=== PATIENT | female | born 1990 | race American Indian/Alaskan Native ===

== ENCOUNTER 2017-04-23 08:31 | Emergency (ER) | payer MEDICAID ==
--- NOTE | 2017-04-23 11:22 | Emergency Department Report ---
ED General Adult HPI - General Chief complaint: Upper Respiratory Infection Stated complaint: FLU LIKE SYMPTOMS Time Seen by Provider: 04/23/17 11:21 Source: patient Mode of arrival: Ambulatory Limitations: No Limitations - History of Present Illness Initial comments: Patient is a 27-year-old female no soft Past medical history who presents with cough wound just body aches have been going on for the last couple days. Patient states that she is not been nauseous or vomiting but she had a stuffy nose. She states the body aches are about 4 out of 10. Nothing makes it better or worse. Patient has been trying some Tamiflu at home with no improvement of her symptoms. Patient states that she's been around sick contacts. She does not know how high her fever has been. - Related Data Previous Rx's Medication Instructions Recorded Last Taken Type Ibuprofen [Motrin 800 MG tab] 800 mg PO Q8HR PRN #15 tablet 05/20/15 Unknown Rx traMADol [Ultram 50 MG tab] 50 mg PO Q6HR PRN #10 tablet 05/20/15 Unknown Rx Amoxicillin/K Clav Tab [Augmentin 1 tab PO Q12HR #14 tab 10/08/15 Unknown Rx 875 mg] Ibuprofen [Motrin] 600 mg PO Q8H PRN #30 tablet 10/08/15 Unknown Rx Cpm/PE/Dm/Acetaminophen/Guaifn 1 each PO Q6H #30 tablet.seq 04/23/17 Unknown Rx [Tylenol Cold-Flu Day-Nt Caplet] Oxymetazoline 0.05% [Afrin] 1 spray NS Q6H #1 bottle 04/23/17 Unknown Rx Allergies Allergy/AdvReac Type Severity Reaction Status Date / Time No Known Allergies Allergy Unverified 12/22/14 23:50 ED Review of Systems ROS: Stated complaint: FLU LIKE SYMPTOMS Other details as noted in HPI Constitutional: fever, malaise. denies: chills Eyes: denies: eye pain, eye discharge, vision change ENT: congestion. denies: ear pain, throat pain Respiratory: denies: cough, shortness of breath, wheezing Cardiovascular: denies: chest pain, palpitations Endocrine: no symptoms reported Gastrointestinal: denies: abdominal pain, nausea, diarrhea Genitourinary: denies: urgency, dysuria, discharge Musculoskeletal: denies: back pain, joint swelling, arthralgia Skin: denies: rash, lesions Neurological: denies: headache, weakness, paresthesias Psychiatric: denies: anxiety, depression Hematological/Lymphatic: denies: easy bleeding, easy bruising ED Past Medical Hx - Past Medical History Previous Medical History?: Yes Additional medical history: ovarian cyst - Surgical History Past Surgical History?: Yes Additional Surgical History: Left Ovary removed - Social History Smoking Status: Never Smoker Substance Use Type: None - Medications Home Medications: Home Medications Medication Instructions Recorded Confirmed Last Taken Type Ibuprofen [Motrin 800 MG tab] 800 mg PO Q8HR PRN #15 tablet 05/20/15 Unknown Rx traMADol [Ultram 50 MG tab] 50 mg PO Q6HR PRN #10 tablet 05/20/15 Unknown Rx Amoxicillin/K Clav Tab [Augmentin 1 tab PO Q12HR #14 tab 10/08/15 Unknown Rx 875 mg] Ibuprofen [Motrin] 600 mg PO Q8H PRN #30 tablet 10/08/15 Unknown Rx Cpm/PE/Dm/Acetaminophen/Guaifn 1 each PO Q6H #30 tablet.seq 04/23/17 Unknown Rx [Tylenol Cold-Flu Day-Nt Caplet] Oxymetazoline 0.05% [Afrin] 1 spray NS Q6H #1 bottle 04/23/17 Unknown Rx ED Physical Exam - General Limitations: No Limitations General appearance: alert, in no apparent distress - Head Head exam: Present: atraumatic, normocephalic - Eye Eye exam: Present: normal appearance - ENT ENT exam: Present: mucous membranes moist - Neck Neck exam: Present: normal inspection - Respiratory Respiratory exam: Present: normal lung sounds bilaterally. Absent: respiratory distress - Cardiovascular Cardiovascular Exam: Present: regular rate, normal rhythm. Absent: systolic murmur, diastolic murmur, rubs, gallop - GI/Abdominal GI/Abdominal exam: Present: soft, normal bowel sounds - Extremities Exam Extremities exam: Present: normal inspection - Back Exam Back exam: Present: normal inspection - Neurological Exam Neurological exam: Present: alert, oriented X3 - Psychiatric Psychiatric exam: Present: normal affect, normal mood - Skin Skin exam: Present: warm, dry, intact, normal color. Absent: rash ED Course Vital Signs 04/23/17 08:49 Temperature 99.3 F Pulse Rate 74 Respiratory 18 Rate Blood Pressure 149/89 O2 Sat by Pulse 98 Oximetry ED Medical Decision Making - Medical Decision Making Cdx: Influenza ddx: Jamul virus, postnasal drip, URI I will send patient home with afrin, tylenol and motrin Discussed plan with patient patient agrees with plan additional verbal discharge instructions were given. Critical care attestation.: If time is entered above; I have spent that time in minutes in the direct care of this critically ill patient, excluding procedure time. ED Disposition Clinical Impression: Influenza, Congestion of nasal sinus Disposition: DC-01 TO HOME OR SELFCARE Is pt being admited?: No Does the pt Need Aspirin: No Condition: Stable Prescriptions: Cpm/PE/Dm/Acetaminophen/Guaifn [Tylenol Cold-Flu Day-Nt Caplet] 1 each PO Q6H # 30 tablet.seq Oxymetazoline 0.05% [Afrin] 1 spray NS Q6H #1 bottle Referrals: SHO ANDREWS MD [Staff Physician] - 3-5 Days
[2017-04-23 11:58] VITALS: BP 146/87
== END 2017-04-23 11:56 | disposition home or self-care (01) ==
LOC: ED 08:31
DX: J11.1 Influenza due to unidentified influenza virus with other respiratory manifestations (principal); R09.81 Nasal congestion
CPT/HCPCS: 99282

== ENCOUNTER 2018-10-26 14:38 | Emergency (ER) | payer MEDICAID, OTHER ==
[2018-10-26 15:09] VITALS: BP 153/92
[2018-10-26] MEDS ORDERED: SOLU-Medrol ONE (18:31)
[2018-10-26] MEDS ORDERED: ULTRAM PO ONE (19:45)
--- NOTE | 2018-10-26 20:16 | XRay Report ---
Left foot 3 views INDICATION: Left foot pain and swelling following injury IMPRESSION: No fracture or subluxation of the left foot identified. Signer Name: Arnav Shipman MD Signed: 10/26/2018 8:12 PM Workstation Name: [id number]
--- NOTE | 2018-10-26 20:55 | Emergency Department Report ---
ED Lower Extremity HPI - General Chief Complaint: Extremity Injury, Lower Stated Complaint: LFT FOOT PAIN Time Seen by Provider: 10/26/18 19:42 Source: patient, family Mode of arrival: Ambulatory Limitations: No Limitations - History of Present Illness Initial Comments: pt is a 28 y/o aaf who presents left foot x 1 week pt denies fall injury trauma, pt denies hx of arthralgia, pain is described as 5/10 aching , pain is exacerbated by ambulation ans weight bearing pain is relieved by rest Complaint: foot injury Onset/Timin -: week(s) Injury: Foot: Left Type of Injury: unknown Severity: moderate Severity scale (0 -10): 5 Improves With: rest Worsens With: weight bearing, movement, palpation Associated Symptoms: swelling, able to partially bear weight. denies: numbness, tingling - Related Data Previous Rx's Medication Instructions Recorded Last Taken Type Ibuprofen [Motrin 800 MG tab] 800 mg PO Q8HR PRN #15 tablet 05/20/15 Unknown Rx traMADol [Ultram 50 MG tab] 50 mg PO Q6HR PRN #10 tablet 05/20/15 Unknown Rx Amoxicillin/K Clav Tab [Augmentin 1 tab PO Q12HR #14 tab 10/08/15 Unknown Rx 875 mg] Ibuprofen [Motrin] 600 mg PO Q8H PRN #30 tablet 10/08/15 Unknown Rx Cpm/PE/Dm/Acetaminophen/Guaifn 1 each PO Q6H #30 tablet.seq 04/23/17 Unknown Rx [Tylenol Cold-Flu Day-Nt Caplet] Oxymetazoline 0.05% [Afrin] 1 spray NS Q6H #1 bottle 04/23/17 Unknown Rx Cyclobenzaprine [Flexeril 10mg] 10 mg PO Q12H PRN #14 tablet 02/19/18 Unknown Rx Ibuprofen [Motrin] 600 mg PO Q8H PRN #12 tablet 02/19/18 Unknown Rx Cyclobenzaprine [Flexeril] 10 mg PO TID PRN #30 tablet 10/26/18 Unknown Rx Naproxen [Naprosyn TAB] 500 mg PO BID PRN #30 tablet 10/26/18 Unknown Rx Allergies Allergy/AdvReac Type Severity Reaction Status Date / Time No Known Allergies Allergy Unverified 12/22/14 23:50 ED Review of Systems ROS: Stated complaint: LFT FOOT PAIN Other details as noted in HPI Constitutional: denies: chills, fever Eyes: denies: eye pain, eye discharge, vision change ENT: denies: ear pain, throat pain Respiratory: denies: cough, shortness of breath, wheezing Cardiovascular: denies: chest pain, palpitations Endocrine: no symptoms reported Gastrointestinal: denies: abdominal pain, nausea, diarrhea Genitourinary: denies: urgency, dysuria, discharge Musculoskeletal: other (foot pain ). denies: back pain, joint swelling, arthralgia Skin: denies: rash, lesions Neurological: denies: headache, weakness, paresthesias Psychiatric: as per HPI Hematological/Lymphatic: denies: easy bleeding, easy bruising ED Past Medical Hx - Past Medical History Previous Medical History?: Yes Additional medical history: ovarian cyst - Surgical History Past Surgical History?: Yes Additional Surgical History: Left Ovary removed - Social History Smoking Status: Never Smoker Substance Use Type: Alcohol - Medications Home Medications: Home Medications Medication Instructions Recorded Confirmed Last Taken Type Ibuprofen [Motrin 800 MG tab] 800 mg PO Q8HR PRN #15 tablet 05/20/15 Unknown Rx traMADol [Ultram 50 MG tab] 50 mg PO Q6HR PRN #10 tablet 05/20/15 Unknown Rx Amoxicillin/K Clav Tab [Augmentin 1 tab PO Q12HR #14 tab 10/08/15 Unknown Rx 875 mg] Ibuprofen [Motrin] 600 mg PO Q8H PRN #30 tablet 10/08/15 Unknown Rx Cpm/PE/Dm/Acetaminophen/Guaifn 1 each PO Q6H #30 tablet.seq 04/23/17 Unknown Rx [Tylenol Cold-Flu Day-Nt Caplet] Oxymetazoline 0.05% [Afrin] 1 spray NS Q6H #1 bottle 04/23/17 Unknown Rx Cyclobenzaprine [Flexeril 10mg] 10 mg PO Q12H PRN #14 tablet 02/19/18 Unknown Rx Ibuprofen [Motrin] 600 mg PO Q8H PRN #12 tablet 02/19/18 Unknown Rx Cyclobenzaprine [Flexeril] 10 mg PO TID PRN #30 tablet 10/26/18 Unknown Rx Naproxen [Naprosyn TAB] 500 mg PO BID PRN #30 tablet 10/26/18 Unknown Rx ED Physical Exam - General Limitations: No Limitations General appearance: alert, in no apparent distress - Head Head exam: Present: atraumatic, normocephalic - Eye Eye exam: Present: normal appearance, PERRL, EOMI Pupils: Present: normal accommodation - ENT ENT exam: Present: mucous membranes moist - Neck Neck exam: Present: normal inspection, full ROM. Absent: tenderness, lymphadenopathy, thyromegaly - Respiratory Respiratory exam: Present: normal lung sounds bilaterally. Absent: respiratory distress, wheezes, stridor, chest wall tenderness - Cardiovascular Cardiovascular Exam: Present: regular rate, normal rhythm, normal heart sounds. Absent: systolic murmur, diastolic murmur, rubs, gallop - GI/Abdominal GI/Abdominal exam: Present: soft, normal bowel sounds. Absent: distended, tenderness, guarding, rebound, rigid, bruit, hernia - Rectal Rectal exam: Present: deferred - Extremities Exam Extremities exam: Present: normal inspection, full ROM, tenderness (left foot pain ), normal capillary refill. Absent: pedal edema, joint swelling, calf tenderness - Expanded Lower Extremity Exam Left Foot/Toe exam: Present: full ROM, tenderness. Absent: swelling, abrasion, laceration, ecchymosis, deformity, crepidus, dislocation, erythema, amputation, puncture wound, foreign body, calcaneal tenderness, tenderness at base of 5th metatarsal, nail avulsion, subungual hematoma Neuro vascular tendon exam: Absent: pulse deficit, motor deficit, sensory deficit, tendon deficit, foot drop Gait: Positive: observed and limited by pain - Back Exam Back exam: Present: normal inspection, muscle spasm. Absent: tenderness, CVA tenderness (R), CVA tenderness (L), paraspinal tenderness, vertebral tenderness, rash noted - Neurological Exam Neurological exam: Present: alert, oriented X3, CN II-XII intact, normal gait, reflexes normal. Absent: motor sensory deficit - Psychiatric Psychiatric exam: Present: normal affect, normal mood - Skin Skin exam: Present: warm, dry, intact, normal color. Absent: rash ED Course Vital Signs 10/26/18 10/26/18 15:06 19:54 Temperature 98.2 F Pulse Rate 111 H Respiratory 20 18 Rate Blood Pressure 153/92 O2 Sat by Pulse 99 Oximetry ED Lower Extremity MDM - Radiology Data Radiology results: report reviewed, image reviewed Findings [facility] [address] [place] [address] XRay Report Signed Patient: MARIA FERNANDA ZAZUETA MR#: [id number] : 1990 Acct:[id number] Age/Sex: 28 / F ADM Date: 10/26/18 Loc: ED Attending Dr: Ordering Physician: VALENTINA JORDAN NP Date of Service: 10/26/18 Procedure(s): XR foot 3+V LT Accession Number(s): [id number] cc: VALENTINA JORDAN NP Fluoro Time In Minutes: Left foot 3 views INDICATION: Left foot pain and swelling following injury IMPRESSION: No fracture or subluxation of the left foot identified. Signer Name: Arnav Shipman MD Signed: 10/26/2018 8:12 PM Workstation Name: [id number] Transcribed By: BC Dictated By: Arnav Shipman MD Electronically Authenticated By: Arnav Shipman MD Signed Date/Time: 10/26/182011 DD/ 11 TD/TT: - Medical Decision Making this is a foot strain xray neg for fracture noted small heel spur, prominant sesamoid no fracture distal pulses are +2 bilat, plan, nsaids, rice therapy, follow up with podiatry in 2-3 days. Critical care attestation.: If time is entered above; I have spent that time in minutes in the direct care of this critically ill patient, excluding procedure time. ED Disposition Clinical Impression: Strain of foot, left Qualifiers: Encounter type: initial encounter Qualified Code(s): S96.912A - Strain of unspecified muscle and tendon at ankle and foot level, left foot, initial encounter Disposition: - TO HOME OR SELFCARE Is pt being admited?: No Does the pt Need Aspirin: No Condition: Stable Instructions: Foot Sprain (ED) Prescriptions: Cyclobenzaprine [Flexeril] 10 mg PO TID PRN #30 tablet PRN Reason: Muscle Spasm Naproxen [Naprosyn TAB] 500 mg PO BID PRN #30 tablet PRN Reason: Pain , Severe (7-10) Referrals: ZAHRA GUERRERO DPM [Staff Physician] - 3-5 Days Forms: Work/School Release Form(ED) Time of Disposition: 21:09
== END 2018-10-26 20:45 | disposition home or self-care (01) ==
LOC: ED 14:38
DX: S96.912A Strain of unspecified muscle and tendon at ankle and foot level, left foot, initial encounter (principal); Z79.899 Other long term (current) drug therapy; X58.XXXA Exposure to other specified factors, initial encounter; Y93.89 Activity, other specified; Y92.89 Other specified places as the place of occurrence of the external cause; Y99.8 Other external cause status
CPT/HCPCS: 99283; J2930

== ENCOUNTER 2020-10-22 08:49 | Emergency (ER) | payer MEDICAID ==
[2020-10-22 12:44] VITALS: BP 168/91
--- NOTE | 2020-10-22 12:46 | Event Note ---
ED Screening Note ED Screening Note: +SOB +chest heaviness began 4 days ago occasional cough +fatigue no fever no diarrhea morning sickness with occasional vomiting no chills no body aches no sore throat no ear pain no leg swelling PMHx denies intolerance to codeine gives her nausea/vomiting has received COVID 19 vaccine has not been tested since becoming sick she is currently 9 weeks and seeing ob This initial assessment/diagnostic orders/clinical plan/treatment(s) is/are subject to change based on patients health status, clinical progression and re- assessment by fellow clinical providers in the ED. Further treatment and workup at subsequent clinical providers discretion. Patient/guardian urged not to elope from the ED as their condition may be serious if not clinically assessed and managed. Initial orders include: labs, xr, ekg
[2020-10-22 13:35] LABS: Basophils % (Auto) 0.2 % (0.0-1.8); Eosinophils # (Auto) 0.1 K/mm3 (0.0-0.4); Eosinophils % (Auto) 0.9 % (0.0-4.3); Hematocrit 39.5 % (30.3-42.9); Hemoglobin 13.4 gm/dl (10.1-14.3); Lymphocytes # (Auto) 2.2 K/mm3 (1.2-5.4); Lymphocytes % (Auto) 14.5 % (13.4-35.0); Mean Corpuscular HGB Conc 34 % (30-34); Mean Corpuscular Volume 88 fl (79-97); Monocytes # (Auto) 0.6 K/mm3 (0.0-0.8); Platelet Count 238 K/mm3 (140-440); Red Cell Distribution Width 13.7 % (13.2-15.2)
--- NOTE | 2020-10-22 13:38 | XRay Report ---
CHEST 2 VIEWS INDICATION: SOB. COMPARISON: None FINDINGS: Support devices: None. Heart: Within normal limits. Lungs/pleura: No acute air space or interstitial disease. No pneumothorax. Additional findings: None. IMPRESSION: No acute findings. Signer Name: Emir Ortiz Jr, MD Signed: 10/22/2020 1:33 PM Workstation Name: [id number]
[2020-10-22 14:02] LABS: Alanine Aminotransferase 8 units/L (7-56); Albumin 4.1 g/dL (3.9-5); Blood Urea Nitrogen 4 mg/dL (7-17); Calcium 11.2 mg/dL (8.4-10.2); Hemolysis Index 16
[2020-10-22 14:05] LABS: BUN/Creatinine Ratio 8
--- NOTE | 2020-10-22 16:48 | Emergency Department Report ---
- General Chief Complaint: Upper Respiratory Infection Stated Complaint: DIFFICULTY BREATHING/9WKS PREG PUI?: No Time Seen by Provider: 10/22/20 12:44 Source: patient Mode of arrival: Ambulatory Limitations: No Limitations - History of Present Illness Initial Comments: Patient is a A0 30-year-old -[place] female with no past medical history and who is approximately 9 weeks gestation and presents to the ED with complaint of acute onset persistent dry cough with chest tightness for the last 1 week, worse in the last 2 days. Patient states that the chest tightness is especially worse with deep inhalation which then triggers persistent dry cough, worse mainly in the morning. Patient denies fever, chills, nasal and sinus congestion, chest pain, dizziness, syncope, sore throat, headache, abdominal pain, nausea and vomiting or palpitations, diarrhea, dysuria, urinary frequency and urgency and vaginal bleeding. MD Complaint: cough, other (Shortness of breath and chest tightness) -: Sudden, week(s) (1) Severity: moderate Severity scale (0 -10): 3 Quality: dull Consistency: intermittent Improves With: nothing Worsens With: deep breaths Associated Symptoms: denies other symptoms, cough, chest pain (Chest tightness), shortness of breath. denies: fever, chills, headache, rhinorrhea, nasal congestion, sore throat, abdominal pain, nausea, vomiting, diarrhea, dysuria, rash, confusion, right sweats, weight loss, epistaxis, hoarseness, ear pain Treatments Prior to Arrival: none - Related Data Previous Rx's Medication Instructions Recorded Last Taken Type Ibuprofen [Motrin 800 MG tab] 800 mg PO Q8HR PRN #15 tablet 05/20/15 Unknown Rx traMADoL [Ultram 50 MG tab] 50 mg PO Q6HR PRN #10 tablet 05/20/15 Unknown Rx Amoxicillin/K Clav Tab [Augmentin 1 tab PO Q12HR #14 tab 10/08/15 Unknown Rx 875 mg] Ibuprofen [Motrin] 600 mg PO Q8H PRN #30 tablet 10/08/15 Unknown Rx Cpm/PE/Dm/Acetaminophen/Guaifn 1 each PO Q6H #30 tablet.seq 04/23/17 Unknown Rx [Tylenol Cold-Flu Day-Nt Caplet] Oxymetazoline 0.05% [Afrin] 1 spray NS Q6H #1 bottle 02/10/18 Unknown Rx Cyclobenzaprine [Flexeril 10mg] 10 mg PO Q12H PRN #14 tablet 02/19/18 Unknown Rx Ibuprofen [Motrin] 600 mg PO Q8H PRN #12 tablet 02/19/18 Unknown Rx Cyclobenzaprine [Flexeril] 10 mg PO TID PRN #30 tablet 10/26/18 Unknown Rx Naproxen [Naprosyn TAB] 500 mg PO BID PRN #30 tablet 10/26/18 Unknown Rx Acetaminophen [Tylenol] 500 mg PO Q6HR PRN #30 tablet 10/22/20 Unknown Rx Albuterol Sulfate [Proventil Hfa] 1 - 2 puff IH Q6H PRN #1 hfa.aer.ad 10/22/20 Unknown Rx Cetirizine HCl [Zyrtec 10mg tab] 10 mg PO DAILY #30 tablet 10/22/20 Unknown Rx Promethazine/Dextromethorphan 5 ml PO Q6H PRN #120 ml 10/22/20 Unknown Rx [Promethazine-Dm 6.25-15 mg/5Ml] Allergies Allergy/AdvReac Type Severity Reaction Status Date / Time No Known Allergies Allergy Unverified 12/22/14 23:50 ED Review of Systems ROS: Stated complaint: DIFFICULTY BREATHING/9WKS PREG Other details as noted in HPI Constitutional: denies: chills, fever Eyes: denies: eye pain, eye discharge, vision change ENT: denies: ear pain, throat pain Respiratory: cough, shortness of breath, other (Chest tightness). denies: wheezing Cardiovascular: other (Chest tightness). denies: chest pain, palpitations Endocrine: no symptoms reported Gastrointestinal: denies: abdominal pain, nausea, vomiting, diarrhea Genitourinary: denies: urgency, dysuria, discharge Musculoskeletal: denies: back pain, joint swelling, arthralgia Skin: denies: rash, lesions Neurological: denies: headache, weakness, paresthesias Psychiatric: denies: anxiety, depression Hematological/Lymphatic: denies: easy bleeding, easy bruising ED Past Medical Hx - Past Medical History Previous Medical History?: Yes Additional medical history: ovarian cyst - Surgical History Past Surgical History?: Yes Additional Surgical History: Left Ovary removed - Social History Smoking Status: Never Smoker Substance Use Type: Alcohol - Medications Home Medications: Home Medications Medication Instructions Recorded Confirmed Last Taken Type Ibuprofen [Motrin 800 MG tab] 800 mg PO Q8HR PRN #15 tablet 05/20/15 Unknown Rx traMADoL [Ultram 50 MG tab] 50 mg PO Q6HR PRN #10 tablet 05/20/15 Unknown Rx Amoxicillin/K Clav Tab [Augmentin 1 tab PO Q12HR #14 tab 10/08/15 Unknown Rx 875 mg] Ibuprofen [Motrin] 600 mg PO Q8H PRN #30 tablet 10/08/15 Unknown Rx Cpm/PE/Dm/Acetaminophen/Guaifn 1 each PO Q6H #30 tablet.seq 04/23/17 Unknown Rx [Tylenol Cold-Flu Day-Nt Caplet] Oxymetazoline 0.05% [Afrin] 1 spray NS Q6H #1 bottle 04/23/17 Unknown Rx Cyclobenzaprine [Flexeril 10mg] 10 mg PO Q12H PRN #14 tablet 02/19/18 Unknown Rx Ibuprofen [Motrin] 600 mg PO Q8H PRN #12 tablet 02/19/18 Unknown Rx Cyclobenzaprine [Flexeril] 10 mg PO TID PRN #30 tablet 10/26/18 Unknown Rx Naproxen [Naprosyn TAB] 500 mg PO BID PRN #30 tablet 10/26/18 Unknown Rx Acetaminophen [Tylenol] 500 mg PO Q6HR PRN #30 tablet 10/22/20 Unknown Rx Albuterol Sulfate [Proventil Hfa] 1 - 2 puff IH Q6H PRN #1 hfa.aer.ad 10/22/20 Unknown Rx Cetirizine HCl [Zyrtec 10mg tab] 10 mg PO DAILY #30 tablet 10/22/20 Unknown Rx Promethazine/Dextromethorphan 5 ml PO Q6H PRN #120 ml 10/22/20 Unknown Rx [Promethazine-Dm 6.25-15 mg/5Ml] ED Physical Exam - General Limitations: No Limitations General appearance: alert, in no apparent distress - Head Head exam: Present: atraumatic, normocephalic, normal inspection - Eye Eye exam: Present: normal appearance, PERRL, EOMI Pupils: Present: normal accommodation - ENT ENT exam: Present: normal exam, normal orophraynx, mucous membranes moist, TM's normal bilaterally, normal external ear exam - Neck Neck exam: Present: normal inspection, full ROM - Respiratory Respiratory exam: Present: normal lung sounds bilaterally. Absent: respiratory distress, wheezes, rales, rhonchi, stridor, chest wall tenderness, accessory muscle use, decreased breath sounds, prolonged expiratory - Cardiovascular Cardiovascular Exam: Present: regular rate, normal rhythm, normal heart sounds. Absent: systolic murmur, diastolic murmur, rubs, gallop - GI/Abdominal GI/Abdominal exam: Present: soft, normal bowel sounds. Absent: tenderness, guarding, rebound, hyperactive bowel sounds, hypoactive bowel sounds, organomegaly - Extremities Exam Extremities exam: Present: normal inspection, full ROM, normal capillary refill - Back Exam Back exam: Present: normal inspection, full ROM. Absent: tenderness, CVA tenderness (R), CVA tenderness (L), muscle spasm, paraspinal tenderness, vertebral tenderness - Neurological Exam Neurological exam: Present: alert, oriented X3, CN II-XII intact, normal gait, reflexes normal - Psychiatric Psychiatric exam: Present: normal affect, normal mood - Skin Skin exam: Present: warm, dry, intact, normal color. Absent: rash ED Course Vital Signs 10/22/20 09:45 Temperature 97.6 F Pulse Rate 72 Respiratory 18 Rate Blood Pressure 168/91 O2 Sat by Pulse 100 Oximetry ED Medical Decision Making - Lab Data Result diagrams: 10/22/20 13:00 10/22/20 13:00 - EKG Data EKG shows normal: sinus rhythm Rate: normal - EKG Data Interpretation: normal EKG 10/22/20 16:47 The EKG shows normal sinus rhythm with a ventricular rate of [address] or T wave abnormalities. - Radiology Data Radiology results: report reviewed, image reviewed [facility] [address] [place] [address] XRay Report Signed Patient: MARIA FERNANDA ZAZUETA MR#: [id number] : 1990 Acct:[id number] Age/Sex: 30 / F ADM Date: 10/22/20 Loc: ED Attending Dr: Ordering Physician: DEE NELSON Date of Service: 10/22/20 Procedure(s): XR chest routine 2V Accession Number(s): [id number] cc: DEE DominicMilton Cardenas Time In Minutes: CHEST 2 VIEWS INDICATION: SOB. COMPARISON: None FINDINGS: Support devices: None. Heart: Within normal limits. Lungs/pleura: No acute air space or interstitial disease. No pneumothorax. Additional findings: None. IMPRESSION: No acute findings. Signer Name: Emir Ortiz Jr, MD Signed: 10/22/2020 1:33 PM Workstation Name: [id number] Transcribed By: TTR Dictated By: EMIR ORTIZ JR, MD Electronically Authenticated By: EMIR ORTIZ JR, MD Signed Date/Time: 10/22/201332 DD/ 32 TD/TT: - Medical Decision Making This is a A0 30-year-old -[place] female with no past medical history and who is approximately 9 weeks gestation and presents to the ED with complaint of acute onset persistent dry cough with chest tightness for the last 1 week, worse in the last 2 days. Patient states that the chest tightness is especially worse with deep inhalation which then triggers persistent dry cough, worse mainly in the morning. In the ED, patient is alert and oriented x3 and is not in any distress. All lab test results were reviewed and are all nonactionable. Chest x-ray shows no acute cardiopulmonary abnormalities or pneumonitis. Patient symptoms are likely due to acute bronchitis versus seasonal allergies. Patient was therefore discharged home on medications and a dvised to follow-up with her primary care physician or [facility] physician in 7 to 10 days for reevaluation. Patient is advised to return to the ED immediately if symptoms get worse. - Differential Diagnosis URI; Bronchitis; Pneumonia; ACS; PE Critical care attestation.: If time is entered above; I have spent that time in minutes in the direct care of this critically ill patient, excluding procedure time. ED Disposition Clinical Impression: Feeling of chest tightness Acute bronchitis Qualifiers: Bronchitis organism: other organism Qualified Code(s): J20.8 - Acute bronchitis due to other specified organisms Disposition: DC-01 TO HOME OR SELFCARE Is pt being admited?: No Does the pt Need Aspirin: No Condition: Stable Instructions: Acute Bronchitis (ED), Nonspecific Chest Pain, Adult, Easy-to-Re ad, Acute Bronchitis, Adult, [id number] Additional Instructions: All lab test results were reviewed and are all nonactionable. Chest x-ray shows no acute cardiopulmonary abnormalities or pneumonitis. Therefore take medications with food, drink plenty of fluids and follow-up with your primary care physician in 7 to 10 days for reevaluation. Return to the ED immediately if symptoms get worse. Prescriptions: Acetaminophen [Tylenol] 500 mg PO Q6HR PRN #30 tablet PRN Reason: Pain , Severe (7-10) Promethazine/Dextromethorphan [Promethazine-Dm 6.25-15 mg/5Ml] 5 ml PO Q6H PRN #120 ml PRN Reason: Cough Albuterol Sulfate [Proventil Hfa] 1 - 2 puff IH Q6H PRN #1 hfa.aer.ad PRN Reason: Shortness Of Breath Cetirizine HCl [Zyrtec 10mg tab] 10 mg PO DAILY #30 tablet Referrals: [facility] [Provider Group] - 7-10 days Time of Disposition: 16:48 Print Language: SPANISH
--- NOTE | 2020-10-24 09:13 | Electrocardiograph Report ---
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
== END 2020-10-22 17:32 | disposition home or self-care (01) ==
LOC: ED 08:49
DX: O99.511 Diseases of the respiratory system complicating pregnancy, first trimester (principal); J20.9 Acute bronchitis, unspecified; R07.89 Other chest pain; Z79.899 Other long term (current) drug therapy; Z98.890 Other specified postprocedural states; Z3A.09 9 weeks gestation of pregnancy
CPT/HCPCS: 36415; 71046; 80053; 83880; 84484; 85025; 93005

== ENCOUNTER 2021-04-08 16:16 | Outpatient (CLI) | payer MEDICAID ==
[2021-04-08] MEDS ORDERED: LACTATED RINGERS 1,000 ML IV ONE (16:51)
[2021-04-08] MEDS ORDERED: BUTALB/ACETAMINOPHEN/CAFFEINE TAB PO ONE (17:13)
[2021-04-08 17:49] LABS: Bilirubin,Urine NEG (Negative); Blood,Urine NEG (Negative); Color,Urine Yellow (Yellow); Protein,Urine <15 mg/dL mg/dL (Negative); Urobilinogen,Urine < 2.0 mg/dL (<2.0)
[2021-04-08 17:57] LABS: Hematocrit 33.1 % (30.3-42.9); Mean Corpuscular HGB Conc 33 % (30-34); Mean Corpuscular Volume 85 fl (79-97); Platelet Count 265 K/mm3 (140-440); Red Cell Distribution Width 14.6 % (13.2-15.2)
[2021-04-08 18:01] LABS: Alanine Aminotransferase 12 units/L (7-56); Uric Acid 3.4 mg/dL (3.5-7.6)
[2021-04-08 18:16] VITALS: BP 148/73
== END 2021-04-08 18:49 | disposition home or self-care (01) ==
LOC: TRG 16:16 → APU 16:18 → TRG 18:49
PROVIDERS: ATTEND Obstetrics & Gynecology
DX: O13.3 Gestational [pregnancy-induced] hypertension without significant proteinuria, third trimester (principal); Z3A.33 33 weeks gestation of pregnancy
CPT/HCPCS: 36415; 59025; 81001; 82565; 83615; 84450; 84460; 84550; 85027; 87086

== ENCOUNTER 2021-05-05 20:20 | Inpatient (IN) | payer MEDICAID ==
[2021-05-05] MEDS ORDERED: TERBUTALINE 1 MG/1 ML INJ SUB-Q PRN (21:38)
[2021-05-05] MEDS ORDERED: miSOPROStol 200 MCG TAB PR PRN (21:38)
[2021-05-05] MEDS ORDERED: CARBOPROST TROMETHAMINE 250 MCG/1 ML INJ IM PRN (21:38)
[2021-05-05] MEDS ORDERED: OXYTOCIN 10 UNIT/1 ML INJ IM PRN (21:38)
[2021-05-05] MEDS ORDERED: LIDOCAINE (2%) 20 MG/1 ML VIAL 20 ML MDV INFILTRATI ONE (21:38)
[2021-05-05] MEDS ORDERED: LOPERAMIDE 2 MG CAP PO PRN (21:38)
[2021-05-05] MEDS ORDERED: METHYLERGONOVINE MALEATE 0.2 MG/ML VIAL IM PRN (21:38)
[2021-05-05] MEDS ORDERED: ePHEDrine SULFATE 50 MG/1 ML INJ IV PRN (21:38)
[2021-05-05] MEDS ORDERED: MINERAL OIL 30 ML ORAL LIQD PO PRN (21:38)
[2021-05-05] MEDS ORDERED: LACTATED RINGERS 1,000 ML IV SCH (21:45)
[2021-05-05] MEDS ORDERED: fentaNYL 100 MCG/2 ML INJ IV PRN (21:57)
[2021-05-05] MEDS ORDERED: BUTORPHANOL 2 MG/1 ML INJ IV PRN (21:57)
[2021-05-05] MEDS ORDERED: NalbUPHINE 10 MG/1 ML INJ IV PRN (21:57)
[2021-05-05] MEDS ORDERED: ACETAMINOPHEN 325 MG TAB PO PRN (21:57)
[2021-05-05] MEDS ORDERED: OXYTOCIN DRIP 30 UNITS/500 ML BAG IV SCH ×2 (22:00)
[2021-05-05 23:02] LABS: Hematocrit 29.4 % (30.3-42.9); Hemoglobin 10.1 gm/dl (10.1-14.3); Mean Corpuscular HGB Conc 34 % (30-34); Mean Corpuscular Volume 84 fl (79-97); Platelet Count 241 K/mm3 (140-440); Red Blood Count 3.51 M/mm3 (3.65-5.03); Red Cell Distribution Width 13.9 % (13.2-15.2)
--- NOTE | 2021-05-06 02:45 | History and Physical Report ---
History of Present Illness Date of examination: 05/06/21 Date of admission: 05/05/21 21:38 Chief complaint: Induction of labor History of present illness: 31-year-old -0-0-1 at 37+1 weeks presents for induction of labor secondary to chronic hypertension and polyhydramnios. The patient initiated care in the [facility] medicine of the . Her course has been complicated by chronic hypertension, polyhydramnios, morbid obesity, and uterine fibroids. 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 Social history: single - Obstetrical History Expected Date of Delivery: 05/26/21 Actual Gestation: 37 Week(s) 1 Day(s) : 2 Para: 1 Hx # Term Pregnancies: 1 Number of Pregnancies: 0 Spontaneous Abortions: 0 Induced : 0 Number of Living Children: 1 Medications and Allergies Allergies Allergy/AdvReac Type Severity Reaction Status Date / Time No Known Allergies Allergy Verified 04/08/21 16:49 Home Medications Medication Instructions Recorded Confirmed Last Taken Type Ibuprofen [Motrin 800 MG tab] 800 mg PO Q8HR PRN #15 tablet 05/20/15 Unknown Rx traMADoL [Ultram 50 MG tab] 50 mg PO Q6HR PRN #10 tablet 05/20/15 Unknown Rx Amoxicillin/K Clav Tab [Augmentin 1 tab PO Q12HR #14 tab 10/08/15 Unknown Rx 875 mg] Ibuprofen [Motrin] 600 mg PO Q8H PRN #30 tablet 10/08/15 Unknown Rx Cpm/PE/Dm/Acetaminophen/Guaifn 1 each PO Q6H #30 tablet.seq 04/23/17 Unknown Rx [Tylenol Cold-Flu Day-Nt Caplet] Oxymetazoline 0.05% [Afrin] 1 spray NS Q6H #1 bottle 04/23/17 Unknown Rx Cyclobenzaprine [Flexeril 10mg] 10 mg PO Q12H PRN #14 tablet 02/19/18 Unknown Rx Ibuprofen [Motrin] 600 mg PO Q8H PRN #12 tablet 02/19/18 Unknown Rx Cyclobenzaprine [Flexeril] 10 mg PO TID PRN #30 tablet 10/26/18 Unknown Rx Naproxen [Naprosyn TAB] 500 mg PO BID PRN #30 tablet 10/26/18 Unknown Rx Acetaminophen [Tylenol] 500 mg PO Q6HR PRN #30 tablet 10/22/20 Unknown Rx Albuterol Sulfate [Proventil Hfa] 1 - 2 puff IH Q6H PRN #1 hfa.aer.ad 10/22/20 Unknown Rx Cetirizine HCl [Zyrtec 10mg tab] 10 mg PO DAILY #30 tablet 10/22/20 Unknown Rx Promethazine/Dextromethorphan 5 ml PO Q6H PRN #120 ml 10/22/20 Unknown Rx [Promethazine-Dm 6.25-15 mg/5Ml] Active Meds: Active Medications Acetaminophen (Acetaminophen 325 Mg Tab) 650 mg PO Q4H PRN PRN Reason: Pain, Mild (1-3) Butorphanol Tartrate (Butorphanol 2 Mg/1 Ml Inj) 2 mg IV Q2H PRN PRN Reason: Pain , Severe (7-10) Carboprost Tromethamine (Carboprost Tromethamine 250 Mcg/1 Ml Inj) 250 mcg IM ONCE PRN PRN Reason: Uterine Bleeding Ephedrine Sulfate (Ephedrine Sulfate 50 Mg/1 Ml Inj) 10 mg IV Q2M PRN PRN Reason: Hypotension Fentanyl (Fentanyl 100 Mcg/2 Ml Inj) 100 mcg IV Q2H PRN PRN Reason: Pain,Severe (7-10) LABOR PAIN Oxytocin/Sodium Chloride (Pitocin/Ns 30 Unit/500ml) 30 units in 500 mls @ 2 mls/hr IV TITR KENYA; Protocol Last Titration: 05/06/21 01:48 Dose: 4 mls/hr, 4 mls/hr Lactated Ringer's (Lactated Ringers) 1,000 mls @ 125 mls/hr IV DIRECT KENYA Last Admin: 05/05/21 23:29 Dose: 125 mls/hr Oxytocin/Sodium Chloride (Pitocin/Ns 30 Unit/500ml) 30 units in 500 mls @ 40 mls/hr IV TITR KENYA; Protocol Loperamide HCl (Loperamide 2 Mg Cap) 2 mg PO ONCE PRN PRN Reason: give with Hemabate Methylergonovine Maleate (Methylergonovine Maleate 0.2 Mg/Ml Vial) 0.2 mg IM ONCE PRN PRN Reason: Uterine Bleeding Mineral Oil (Mineral Oil 30 Ml Oral Liqd) 30 ml PO QHS PRN PRN Reason: Constipation Misoprostol (Misoprostol 200 Mcg Tab) 800 mcg SC ONCE PRN PRN Reason: Uterine Bleeding Nalbuphine HCl (Nalbuphine 10 Mg/1 Ml Inj) 10 mg IV Q2H PRN PRN Reason: Pain, Moderate (4-6) Oxytocin (Oxytocin 10 Unit/1 Ml Inj) 10 unit IM ONCE PRN PRN Reason: Uterine Bleeding Terbutaline Sulfate (Terbutaline 1 Mg/1 Ml Inj) 0.25 mg SUB-Q ONCE PRN PRN Reason: Hyperstimulation/Hypertonicity Review of Systems All systems: negative Genitourinary: no leakage of fluid, no contractions - Vital Signs Vital signs: Vital Signs Pulse Pulse Ox 78 100 05/05/21 23:19 05/05/21 23:19 Temp Pulse Resp BP Pulse Ox 98.7 F 78 132/82 99 05/06/21 00:39 05/06/21 02:38 05/06/21 00:49 05/06/21 02:38 - Physical Exam Breasts: Positive: deferred Cardiovascular: Regular rate Lungs: Positive: Clear to auscultation Abdomen: Positive: normal appearance Results Result Diagrams: 05/05/21 21:40 Abnormal lab results 05/05/21 Range/Units 21:40 WBC 12.2 H (4.5-11.0) K/mm3 RBC 3.51 L (3.65-5.03) M/mm3 Hct 29.4 L (30.3-42.9) % All other labs normal. Assessment and Plan - Patient Problems (1) Chronic hypertension affecting Current Visit: Yes Status: Acute Plan to address problem: Admit for induction of labor (2) Polyhydramnios affecting Current Visit: Yes Status: Acute
--- NOTE | 2021-05-06 07:56 | Progress Note ---
Assessment and Plan - Patient Problems (1) Chronic hypertension affecting Current Visit: Yes Status: Acute Plan to address problem: AROM @ 0750, clear fluids Epidural as desired Continue to monitor B/Ps closely Anticipate (2) Morbid obesity with BMI of 50.0-59.9, adult Current Visit: Yes Status: Acute Subjective - Subjective Date of service: 05/06/21 Principal diagnosis: IOL; CHTN Interval history: 31-year-old -0-0-1 at 37+1 weeks presents for induction of labor secondary to chronic hypertension and polyhydramnios. The patient initiated care in the pressure medicine of the . Her course has been complicated by chronic hypertension, polyhydramnios, morbid obesity, and uterine fibroids. Patient is GBS negative Patient reports: movement normal, contractions, no new complaints, no loss of fluid, no vaginal bleeding Objective - Vital Signs Vital Signs: Vital Signs - 12hr 05/05/21 05/05/21 05/05/21 23:19 23:24 23:29 Temperature Pulse Rate 78 87 92 H Blood Pressure O2 Sat by Pulse 100 100 100 Oximetry 05/05/21 05/05/21 05/06/21 23:34 23:39 00:39 Temperature 98.7 F Pulse Rate 91 H 98 H Blood Pressure O2 Sat by Pulse 97 99 Oximetry 05/06/21 05/06/21 05/06/21 00:49 00:54 00:59 Temperature Pulse Rate 82 87 87 Blood Pressure 132/82 O2 Sat by Pulse 99 98 100 Oximetry 05/06/21 05/06/21 05/06/21 01:04 01:09 01:14 Temperature Pulse Rate 81 86 83 Blood Pressure O2 Sat by Pulse 99 100 100 Oximetry 05/06/21 05/06/21 05/06/21 01:19 01:24 01:29 Temperature Pulse Rate 87 86 83 Blood Pressure O2 Sat by Pulse 100 100 100 Oximetry 05/06/21 05/06/21 05/06/21 01:32 01:34 01:43 Temperature Pulse Rate 94 H 85 82 Blood Pressure O2 Sat by Pulse 88 100 100 Oximetry 05/06/21 05/06/21 05/06/21 01:48 01:53 01:58 Temperature Pulse Rate 79 77 87 Blood Pressure O2 Sat by Pulse 100 100 100 Oximetry 02/23/22 02/23/22 02/23/22 02:03 02:08 02:13 Temperature Pulse Rate 76 84 75 Blood Pressure O2 Sat by Pulse 100 100 100 Oximetry 05/06/21 05/06/21 05/06/21 02:18 02:23 02:28 Temperature Pulse Rate 81 79 79 Blood Pressure O2 Sat by Pulse 100 100 100 Oximetry 05/06/21 05/06/21 05/06/21 02:33 02:38 02:43 Temperature Pulse Rate 80 78 79 Blood Pressure O2 Sat by Pulse 99 99 98 Oximetry 05/06/21 05/06/21 05/06/21 02:48 02:52 02:53 Temperature Pulse Rate 73 96 H 88 Blood Pressure O2 Sat by Pulse 100 92 100 Oximetry 05/06/21 05/06/21 05/06/21 02:58 03:03 03:08 Temperature Pulse Rate 84 91 H 81 Blood Pressure O2 Sat by Pulse 100 100 100 Oximetry 05/06/21 05/06/21 05/06/21 04:18 04:24 04:25 Temperature Pulse Rate 80 72 83 Blood Pressure O2 Sat by Pulse 81 L 0 L 100 Oximetry 05/06/21 05/06/21 05/06/21 04:30 04:35 04:40 Temperature Pulse Rate 95 H 82 90 Blood Pressure O2 Sat by Pulse 100 100 100 Oximetry 05/06/21 05/06/21 05/06/21 04:45 04:50 04:55 Temperature Pulse Rate 76 79 77 Blood Pressure O2 Sat by Pulse 100 100 100 Oximetry 05/06/21 05/06/21 05/06/21 05:00 05:05 05:10 Temperature Pulse Rate 100 H 77 87 Blood Pressure O2 Sat by Pulse 100 100 99 Oximetry 05/06/21 05/06/21 05/06/21 05:15 05:20 05:25 Temperature Pulse Rate 79 77 83 Blood Pressure O2 Sat by Pulse 100 100 100 Oximetry 05/06/21 05/06/21 05/06/21 05:30 05:35 05:40 Temperature Pulse Rate 79 81 81 Blood Pressure O2 Sat by Pulse 100 100 100 Oximetry 05/06/21 05/06/21 05/06/21 05:45 05:50 05:55 Temperature Pulse Rate 79 77 83 Blood Pressure O2 Sat by Pulse 99 100 100 Oximetry 05/06/21 05/06/21 05/06/21 06:01 06:06 06:31 Temperature Pulse Rate 92 H 87 79 Blood Pressure 132/79 O2 Sat by Pulse 92 100 Oximetry 05/06/21 07:26 Temperature Pulse Rate 85 Blood Pressure 137/90 O2 Sat by Pulse Oximetry - Exam Breasts: deferred Cardiovascular: Regular rate Lungs: Normal air movement FHR: category 1 Uterine Contraction Monitor Mode: External Cervical Dilatation: 4.5 (vertex) Cervical Effacement Percentage: 90 (Pitocin @ 10mu/min) station: -1 Uterine Contraction Frequency (min): 3-5 Uterine Contraction Pattern: Irregular Uterine Tone Measurement Phase: Resting Uterine Contraction Intensity: Mild Deep Tendon Reflex Grade: Normal +2 - Labs Labs: Abnormal Labs 05/05/21 21:40 WBC 12.2 H RBC 3.51 L Hct 29.4 L Laboratory Results - last 24 hr 05/05/21 05/05/21 05/05/21 21:40 21:40 21:40 WBC 12.2 H RBC 3.51 L Hgb 10.1 Hct 29.4 L MCV 84 MCH 29 MCHC 34 RDW 13.9 Plt Count 241 Syphilis IgG/IgM Ab Nonreactive Blood Type B POSITIVE Antibody Screen Negative
--- NOTE | 2021-05-06 08:43 | Anesthesia Consultation ---
Anesthesia Consult and Med Hx Date of service: 05/06/21 - Airway Anesthetic Teeth Evaluation: Good ROM Head & Neck: Adequate Mental/Hyoid Distance: Adequate Mallampati Class: Class III Intubation Access Assessment: Possibly Difficult - Pre-Operative Health Status ASA Pre-Surgery Classification: ASA3 Proposed Anesthetic Plan: Epidural, Spinal - Pulmonary Hx Asthma: No COPD: No Hx Pneumonia: No - Cardiovascular System Hx Hypertension: No - Central Nervous System Hx Seizures: No Hx Psychiatric Problems: No - Endocrine Hx Renal Disease: No Hx End Stage Renal Disease: No Hx Hypothyroidism: No Hx Hyperthyroidism: No - Hematic Hx Anemia: Yes Hx Sickle Cell Disease: No - Other Systems Hx Alcohol Use: No Hx Obesity: Yes (BMI 55.3)
--- NOTE | 2021-05-06 08:49 | Progress Note ---
Labor Epidural - Labor Epidural Start Time: 08:24 Stop Time: 08:34 Performed by:: DERICK MCPHERSON Procedure: Combined spinal/epidural for labor Patient requesting epidural for labor pain. H&P, labs were reviewed. Patient IDed, procedure explained, all questions and concerns answered, and consent signed. Timeout performed immediately prior to procedure. Patient placed in sitting position. Sterile prep and drape in usual fashion. Skin anesthetized with 3ml of 1% lidocaine at L[2]- L [3] interspace. 17-gauge Touhy epidural needle advanced to LIZ with saline @ 6cm. Negative CSF, negative blood via Touhy needle. 25g spinal needle advanced through Touhy until clear, free flowing CSF noted. 10 mg of Precedex injected into intrathecal space then spinal needle removed. Epidural catheter advanced to [11] centimeters. [Negative] aspiration and [negative] response to 1% lidocaine w/ epi test dose. Clear, sterile dressing applied and reinforced with tape. Patient tolerated procedure well, no immediate complications noted. Pain improved after procedure
[2021-05-06] MEDS ORDERED: fentaNYL-BUPIV 2 MCG/ML-0.125% 200 MCG/100 ML BAG EPIDURAL SCH (09:00)
[2021-05-06] MEDS ORDERED: NALOXONE 2 MG/2 ML INJ IV PRN (09:00)
[2021-05-06] MEDS ORDERED: ePHEDrine SULFATE 50 MG/1 ML INJ IV PRN (10:00)
--- NOTE | 2021-05-06 10:31 | Procedure Note ---
OB Delivery Note - Delivery Date of Delivery: 05/06/21 (1000) Surgeon: RANDALL ZAZUETA (CNM) Estimated blood loss: 300cc - Vaginal Delivery presentation: vertex Delivery position: OA (VONNIE) Intrapartum events: none Delivery induction: oxytocin Delivery augmentation: rupture of membranes (AROM @ 0750) Delivery monitor: external FHT, external uterine Route of delivery: Delivery placenta: spontaneous (1005) Delivery cord: 3 umbilical vessels Episiotomy: none Delivery laceration: none Anesthesia: epidural Delivery comments: of viable, crying, female placed directly to maternal abdomen. Cord double clamped, cut by MGM after cessation of pulsation. Placenta spontaneously delivered, disposed per hospital policy. Uterus firm @ U-2, hemostasis maintained. Perineum intact. Mother and baby stable, safe and left in care of MD. - A at 1 minute: 9 at 5 minutes: 9 Infant Gender: Female (Weight: 2990 gms (6lbs 9ozs) 19.25 inches)
[2021-05-06] MEDS ORDERED: diphenhydrAMINE 25 MG CAP PO PRN (11:00)
[2021-05-06] MEDS ORDERED: oxyCODONE /ACETAMINOPHEN 5-325MG TAB PO PRN (11:00)
[2021-05-06] MEDS ORDERED: WITCH HAZEL/ GLYCERIN PAD TP PRN (11:00)
[2021-05-06] MEDS ORDERED: MAGNESIUM HYDROXIDE (MOM) ORAL LIQD UDC PO PRN (11:00)
[2021-05-06] MEDS ORDERED: LANOLIN/ZINC/DIMETHICONE (LANSINOH) 7 GM TP PRN (11:00)
[2021-05-06] MEDS ORDERED: PROMETHAZINE 25 MG TAB PO PRN (11:00)
[2021-05-06] MEDS ORDERED: ONDANSETRON 4 MG/2 ML INJ IV PRN (11:00)
[2021-05-06] MEDS: IBUPROFEN 800 MG TAB PO SCH (16:52)
--- NOTE | 2021-05-06 18:32 | Post Anesthesia Evaluation ---
- Post Anesthesia Evaluation Patient Participated: Yes Airway Patent: Yes Stable Respiratory Function: Yes Nausea/Vomiting: No Temp > 96.8F: Yes Pain Manageable: Yes Adequeate Hydration: Yes Anesthesia Complications: No Block Receding Appropriately: Yes Patient on Ventilator: No
[2021-05-06 23:45] LABS: Hematocrit 28.4 % (30.3-42.9); Hemoglobin 9.6 gm/dl (10.1-14.3)
[2021-05-07] MEDS: IBUPROFEN 800 MG TAB PO SCH ×2 (07:14→10:22)
--- NOTE | 2021-05-07 08:30 | Discharge Summary ---
Providers - Providers Date of Admission: 05/05/21 21:38 Date of discharge: 05/07/21 Attending physician: RISA CASTILLO 05/06/21 10:25 Consult to Transportation Job Titles [CONS] Routine Reason For Exam: assistance with , SNS Primary care physician: RISA CASTILLO Hospitalization Reason for admission: induction of labor Delivery: Episiotomy: none Laceration: none Other procedures: none complications: none Discharge diagnosis: IUP at term delivered, other (anemia) [place] baby: female Hospital course: 31-year-old -0-0-1 at 37+1 weeks presents for induction of labor secondary to chronic hypertension and polyhydramnios. The patient initiated care in the pressure medicine of the . Her course has been complicated by chronic hypertension, polyhydramnios, morbid obesity, and uterine fibroids. Patient is GBS negative. Delivered viable female infant. course has been uneventful, request d/c home on PPD#1. F/U in 1 week at office for B/P check. Condition at discharge: Good Disposition: 01 HOME / SELF CARE / HOMELESS - Discharge Diagnoses (1) Chronic hypertension affecting Status: Acute (2) Morbid obesity with BMI of 50.0-59.9, adult Status: Acute (3) Status post normal vaginal delivery Status: Acute Plan - Discharge Medications Prescriptions: Ibuprofen [Motrin 800 MG tab] 800 mg PO Q8HR 7 Days #21 tablet - Provider Discharge Summary Activity: routine, no sex for 6 weeks, no heavy lifting 4 weeks, no strenuous exercise Diet: other (Iron rich diet) Instructions: routine Additional instructions: [] Smoking cessation referral if applicable(refer to patient education folder for contact #) [] Refer to [facility] Booklet Call your doctor immediately for: * Fever > 100.5 * Heavy vaginal bleeding ( >1 pad per hour) * Severe persistent headache * Shortness of breath * Reddened, hot, painful area to leg or breast * Drainage or odor from incision. * Follow-up in 1 week for B/P check - Follow up plan Follow up: RISA CASTILLO MD [Primary Care Provider] - 7 Days
[2021-05-07] MEDS ORDERED: PRENATAL VIT27-FE FUMARATE-FOLIC ACID VIT TAB PO SCH (10:00)
[2021-05-07 18:15] VITALS: BP 147/88
== END 2021-05-07 19:22 | disposition home or self-care (01) | DRG 774 ==
LOC: CATH 20:20 → TRG 20:20 → LD 21:38 → OB 05-06 12:29
PROVIDERS: ADMIT Obstetrics & Gynecology; ATTEND Obstetrics & Gynecology
PROC: 10E0XZZ Delivery of Products of Conception, External Approach (ICD-10-PCS; principal; 2021-05-06)
PROC: 10907ZC Drainage of Amniotic Fluid, Therapeutic from Products of Conception, Via Natural or Artificial Opening (ICD-10-PCS; 2021-05-06)
PROC: 3E0R3BZ Introduction of Anesthetic Agent into Spinal Canal, Percutaneous Approach (ICD-10-PCS; 2021-05-06)
PROC: 00HU33Z Insertion of Infusion Device into Spinal Canal, Percutaneous Approach (ICD-10-PCS; 2021-05-06)
PROC: 3E033VJ Introduction of Other Hormone into Peripheral Vein, Percutaneous Approach (ICD-10-PCS; 2021-05-06)
DX: O40.3XX0 Polyhydramnios, third trimester, not applicable or unspecified (principal); O10.92 Unspecified pre-existing hypertension complicating childbirth; O99.214 Obesity complicating childbirth; Z3A.37 37 weeks gestation of pregnancy; Z37.0 Single live birth; E66.01 Morbid (severe) obesity due to excess calories; Z20.822 Contact with and (suspected) exposure to COVID-19; O34.13 Maternal care for benign tumor of corpus uteri, third trimester; D25.9 Leiomyoma of uterus, unspecified
CPT/HCPCS: 36415; 85014; 85018; 85027; 86592; 86850; 86900; 86901; 99211; G0378; G0463; J2590; J7120; U0003

== ENCOUNTER 2021-05-10 18:09 | Inpatient (IN) | payer MEDICAID ==
[2021-05-10] MEDS ORDERED: MAGNESIUM SULFATE 4 GM/100 ML BAG IV ONE (18:15)
[2021-05-10] MEDS: LACTATED RINGERS 1,000 ML IV SCH (18:27)
[2021-05-10 18:57] LABS: Hematocrit 33.2 % (30.3-42.9); Hemoglobin 11.3 gm/dl (10.1-14.3); Mean Corpuscular HGB Conc 34 % (30-34); Mean Corpuscular Volume 85 fl (79-97); Platelet Count 317 K/mm3 (140-440); Red Blood Count 3.93 M/mm3 (3.65-5.03); Red Cell Distribution Width 13.8 % (13.2-15.2)
[2021-05-10] MEDS: MAGNESIUM SULFATE 40GM/1000ML 40 GM/1,000 ML BAG IV SCH (19:05)
[2021-05-10 19:15] LABS: Alanine Aminotransferase 22 units/L (7-56); Uric Acid 4.9 mg/dL (3.5-7.6)
[2021-05-10 19:25] LABS: Bacteria,Urine 1+ /HPF (Negative); Bilirubin,Urine NEG (Negative); Blood,Urine LG (Negative); Color,Urine Yellow (Yellow); Protein,Urine <15 mg/dL mg/dL (Negative); Urobilinogen,Urine < 2.0 mg/dL (<2.0)
[2021-05-10] MEDS ORDERED: hydrALAZINE 20 MG/1 ML INJ IV ONE (20:05)
[2021-05-10] MEDS ORDERED: hydrALAZINE 20 MG/1 ML INJ IV PRN (20:06)
[2021-05-10] MEDS ORDERED: ACETAMINOPHEN 325 MG TAB PO ONE (20:59)
[2021-05-11] MEDS ORDERED: NIFEdipine XL 30 MG TAB PO SCH ×2 (02:00→10:00)
[2021-05-11] MEDS: ACETAMINOPHEN 500 MG TAB PO PRN ×2 (02:11→07:30)
[2021-05-11] MEDS: BUTALB/ACETAMINOPHEN/CAFFEINE TAB PO PRN ×2 (09:00→17:54)
--- NOTE | 2021-05-11 09:02 | History and Physical Report ---
History of Present Illness Date of examination: 05/11/21 Date of admission: 05/10/21 20:26 Chief complaint: headahce, elevated blood pressure History of present illness: Patient is a 31-year-old -0-0-2 status post on May 06, 2021 at 37 weeks after scheduled induction due to chronic hypertension and polyhydramnios. She was admitted overnight secondary to headache and elevated blood pressures 180s to 190s systolic. She was placed on IV magnesium sulfate for seizure prophylaxis which began around 1900 p.m. on 05/10/2021. This morning the patient continues to complain of headache, but reports that she has not eaten since noon yesterday. She has sad because she is away from her baby. 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 ) [employer] History: fibroids Social history: single - Obstetrical History : 2 Para: 2 Hx # Term Pregnancies: 2 Number of Pregnancies: 0 Spontaneous Abortions: 0 Induced : 0 Number of Living Children: 2 Medications and Allergies Allergies Allergy/AdvReac Type Severity Reaction Status Date / Time No Known Allergies Allergy Verified 05/10/21 18:12 Home Medications Medication Instructions Recorded Confirmed Last Taken Type labetaloL [Labetalol 200mg TAB] 200 mg PO BID 05/10/21 05/10/21 05/09/21 18:00 History Active Meds: Active Medications Acetaminophen (Acetaminophen 500 Mg Tab) 500 mg PO Q6H PRN PRN Reason: Pain, Mild (1-3) Last Admin: 05/11/21 07:30 Dose: 500 mg Acetaminophen/Butalbital/Caffeine (Butalb/Acetaminophen/Caffeine Tab) 2 tab PO Q4H PRN PRN Reason: Headache Hydralazine HCl (Hydralazine 20 Mg/1 Ml Inj) 5 mg IV Q30MIN PRN PRN Reason: Blood Pressure Lactated Ringer's (Lactated Ringers) 1,000 mls @ 125 mls/hr IV DIRECT KENYA Last Infusion: 05/10/21 18:28 Dose: 75 mls/hr Magnesium Sulfate (Magnesium Sulfate 40gm/1000ml) 40 gm in 1,000 mls @ 50 mls/hr IV DIRECT KENYA Last Admin: 05/10/21 19:05 Dose: 2 gm/hr, 50 mls/hr Labetalol HCl (Labetalol 100 Mg Tab) 300 mg PO BID KENYA Nifedipine (Nifedipine Xl 30 Mg Tab) 30 mg PO QDAY KENYA Last Admin: 05/11/21 01:59 Dose: 30 mg Review of Systems All systems: negative - Vital Signs Vital signs: Vital Signs Pulse Pulse Ox 87 100 05/10/21 18:16 05/10/21 18:16 Temp Pulse Resp BP Pulse Ox 98.1 F 82 15 153/88 100 05/11/21 07:08 05/11/21 08:57 05/11/21 07:08 05/11/21 08:30 05/11/21 08:57 - Physical Exam Breasts: Positive: deferred Abdomen: Positive: soft (obese ) Extremities: Positive: edema (trace ) Results Result Diagrams: 05/10/21 18:40 05/10/21 18:40 Abnormal lab results 05/10/21 05/10/21 05/10/21 Range/Units 18:40 18:40 18:40 WBC 12.6 H (4.5-11.0) K/mm3 Magnesium (1.7-2.3) mg/dL Lactate Dehydrogenase 221 H (91-180) units/L Urine WBC (Auto) 35.0 H (0.0-6.0) /HPF 05/11/21 05/11/21 Range/Units 01:30 07:53 WBC (4.5-11.0) K/mm3 Magnesium 4.10 H 3.90 H (1.7-2.3) mg/dL Lactate Dehydrogenase (91-180) units/L Urine WBC (Auto) (0.0-6.0) /HPF All other labs normal. Assessment and Plan A: Chronic Hypertension with superimposed preeclampsia s/p on 05/06/21 Morbid Obesity P: Continue IV magnesium sulfate for seizure prophylaxis for 24 hours Continue labetalol 300 mg BID and Procardia XL 30 mg; increased as needed Initiate Fioricet PRN headache
[2021-05-11] MEDS: MAGNESIUM SULFATE 40GM/1000ML 40 GM/1,000 ML BAG IV SCH (15:49)
[2021-05-11] MEDS: LACTATED RINGERS 1,000 ML IV SCH (15:49)
[2021-05-11] MEDS ORDERED: NIFEdipine XL 30 MG TAB PO ONE (17:30)
--- NOTE | 2021-05-12 09:04 | Progress Note ---
Assessment and Plan A: pre-eclampsia s/p Mag sulfate x 24hrs Vitals stable P: Continue with routine care with discharge this morning Subjective - Subjective Date of service: 05/12/21 Principal diagnosis: Pre-eclampsia Interval history: Patient is s/p Mag Sulfate x 24hrs for pre-eclampsia. She reports she is feeling much better and is excited to go home. Patient reports: appetite normal, voiding normally, pain well controlled Objective - Vital Signs Latest vital signs: Vital Signs Temp Pulse Resp BP BP Pulse Ox Pulse Ox 05/12/21 07:30 98 05/12/21 06:49 89 147/89 05/12/21 04:00 98.6 F 77 16 134/78 05/12/21 01:58 125/66 05/12/21 01:55 98.0 F 88 18 149/92 97 05/12/21 00:44 87 100 05/12/21 00:39 88 98 05/12/21 00:34 93 H 98 05/12/21 00:32 88 155/80 05/12/21 00:29 89 98 05/12/21 00:24 88 99 05/12/21 00:19 85 100 05/12/21 00:17 85 144/74 05/12/21 00:14 83 100 05/12/21 00:09 85 100 05/12/21 00:04 85 99 05/12/21 00:02 86 146/83 05/11/21 23:59 86 100 05/11/21 23:54 86 99 05/11/21 23:49 93 H 100 05/11/21 23:47 87 139/83 05/11/21 23:44 85 99 05/11/21 23:39 91 H 99 05/11/21 23:34 93 H 99 05/11/21 23:32 90 136/83 05/11/21 23:29 95 H 99 05/11/21 23:24 84 98 05/11/21 23:19 83 97 05/11/21 23:18 86 130/77 05/11/21 23:14 82 97 05/11/21 23:09 93 H 98 05/11/21 23:04 94 H 98 05/11/21 23:02 82 142/81 05/11/21 22:59 82 99 05/11/21 22:54 91 H 97 05/11/21 22:49 83 95 05/11/21 22:47 80 137/76 05/11/21 22:44 82 95 05/11/21 22:39 83 95 05/11/21 22:34 81 95 05/11/21 22:32 80 139/73 05/11/21 22:29 80 96 05/11/21 22:24 82 94 05/11/21 22:19 92 H 97 05/11/21 22:17 79 140/78 05/11/21 22:14 79 97 05/11/21 22:09 82 99 05/11/21 22:04 82 99 05/11/21 22:03 84 156/87 05/11/21 21:59 87 98 02 21:54 91 H 98 05/11/21 21:49 94 H 99 05/11/21 21:48 82 152/81 05/11/21 21:44 88 99 05/11/21 21:39 98 H 98 05/11/21 21:34 89 98 05/11/21 21:33 84 153/80 05/11/21 21:29 87 98 05/11/21 21:25 86 158/77 05/11/21 21:24 94 H 99 05/11/21 21:19 87 98 05/11/21 21:18 84 158/77 05/11/21 21:14 87 100 05/11/21 21:09 86 99 05/11/21 21:04 87 99 05/11/21 21:03 85 169/77 05/11/21 20:59 89 100 05/11/21 20:54 97 H 99 05/11/21 20:49 89 100 05/11/21 20:48 90 173/97 05/11/21 20:44 95 H 99 05/11/21 20:39 80 100 05/11/21 20:34 86 99 05/11/21 20:33 83 166/95 05/11/21 20:29 79 100 05/11/21 20:24 88 98 05/11/21 20:19 95 H 100 05/11/21 20:18 80 164/92 05/11/21 20:14 85 98 05/11/21 20:09 76 99 05/11/21 20:04 91 H 100 05/11/21 20:03 82 158/87 0228/22 19:59 88 98 05/11/21 19:54 84 99 05/11/21 19:49 88 99 05/11/21 19:48 83 150/84 05/11/21 19:44 85 98 05/11/21 19:39 86 98 05/11/21 19:34 82 99 05/11/21 19:32 78 157/85 05/11/21 19:29 88 99 05/11/21 19:24 85 99 05/11/21 19:19 83 98 05/11/21 19:18 83 153/85 05/11/21 19:14 86 100 05/11/21 19:09 86 97 05/11/21 19:04 85 98 05/11/21 19:03 83 159/89 05/11/21 18:59 84 98 05/11/21 18:54 81 99 05/11/21 18:49 89 99 05/11/21 18:48 84 161/88 05/11/21 18:44 83 100 05/11/21 18:39 85 100 05/11/21 18:34 85 100 05/11/21 18:33 80 166/89 05/11/21 18:29 84 99 05/11/21 18:24 86 100 05/11/21 18:19 87 100 05/11/21 18:18 82 159/87 05/11/21 18:14 85 100 05/11/21 18:09 86 98 05/11/21 18:04 90 100 05/11/21 18:03 87 172/87 05/11/21 17:59 87 100 05/11/21 17:54 92 H 99 05/11/21 17:49 95 H 100 05/11/21 17:44 93 H 99 05/11/21 17:39 83 100 05/11/21 17:34 81 99 05/11/21 17:29 86 100 05/11/21 17:26 98.1 F 85 16 100 05/11/21 17:25 81 162/91 05/11/21 17:24 89 100 05/11/21 17:19 90 100 05/11/21 17:14 91 H 100 05/11/21 17:12 83 176/95 05/11/21 17:09 91 H 100 05/11/21 17:04 87 100 0228/22 16:59 91 H 99 05/11/21 16:54 85 100 05/11/21 16:49 87 100 05/11/21 16:44 84 99 05/11/21 16:39 83 100 05/11/21 16:34 80 99 05/11/21 16:29 84 100 05/11/21 16:24 81 100 05/11/21 16:19 90 100 05/11/21 16:14 89 100 05/11/21 16:12 83 156/85 05/11/21 16:09 89 100 05/11/21 16:04 89 100 05/11/21 15:20 90 97 05/11/21 15:15 87 98 05/11/21 15:11 86 141/81 05/11/21 15:10 89 97 05/11/21 15:05 87 98 05/11/21 15:00 94 H 88 05/11/21 14:56 89 91 05/11/21 14:55 93 H 98 05/11/21 14:50 85 99 05/11/21 14:45 89 98 05/11/21 14:40 86 98 05/11/21 14:35 86 98 05/11/21 14:30 85 99 05/11/21 14:25 85 98 05/11/21 14:21 94 H 93 05/11/21 14:20 89 98 05/11/21 14:15 92 H 100 05/11/21 14:13 30 L 93 05/11/21 14:12 89 149/86 05/11/21 14:10 89 100 05/11/21 14:07 93 H 94 05/11/21 14:05 90 98 05/11/21 13:58 96 H 92 05/11/21 13:53 91 H 100 05/11/21 13:48 95 H 100 05/11/21 13:43 89 100 05/11/21 13:38 89 98 05/11/21 13:33 89 99 05/11/21 13:28 85 99 05/11/21 13:23 87 99 05/11/21 13:18 87 98 05/11/21 13:13 89 99 05/11/21 13:12 84 127/60 05/11/21 13:07 87 98 05/11/21 13:02 83 100 05/11/21 12:59 90 05/11/21 12:57 85 99 05/11/21 12:52 87 100 05/11/21 12:47 100 H 91 05/11/21 12:43 86 100 05/11/21 12:37 88 97 05/11/21 12:32 90 100 05/11/21 12:27 92 H 99 05/11/21 12:24 86 0 L 05/11/21 12:22 94 H 97 05/11/21 12:17 89 99 05/11/21 12:12 88 139/71 05/11/21 12:11 88 98 05/11/21 12:06 93 H 98 05/11/21 12:01 104 H 99 05/11/21 11:56 90 98 05/11/21 11:51 90 98 05/11/21 11:46 86 99 05/11/21 11:41 90 100 05/11/21 11:37 52 L 94 05/11/21 11:36 91 H 99 05/11/21 11:31 94 H 98 05/11/21 11:26 85 97 05/11/21 11:21 88 99 05/11/21 11:16 88 98 05/11/21 11:12 92 H 154/80 05/11/21 11:11 90 100 05/11/21 11:06 93 H 99 05/11/21 11:01 89 98 05/11/21 11:00 96 H 94 05/11/21 10:56 96 H 97 05/11/21 10:51 84 96 05/11/21 10:46 91 H 98 05/11/21 10:41 96 H 97 05/11/21 10:36 101 H 94 05/11/21 10:35 89 94 05/11/21 10:31 92 H 94 05/11/21 10:30 94 H 92 05/11/21 10:07 97 H 97 05/11/21 10:02 95 H 98 05/11/21 09:57 92 H 99 05/11/21 09:52 90 99 05/11/21 09:47 87 100 05/11/21 09:42 81 100 05/11/21 09:37 86 100 05/11/21 09:32 78 99 05/11/21 09:27 82 96 05/11/21 09:22 96 H 97 05/11/21 09:17 88 97 05/11/21 09:12 95 H 99 05/11/21 09:07 91 H 100 05/11/21 09:02 93 H 100 Intake and Output 05/11/21 05/12/21 05/12/21 23:59 07:59 15:59 Output Total 3100 Balance -3100 Output: Urine 3100 Indwelling Catheter 3100 Other: Total, Output Amount 200 - Labs Labs: Abnormal lab results 05/11/21 Range/Units 18:21 Magnesium 4.70 H (1.7-2.3) mg/dL
--- NOTE | 2021-05-12 09:07 | Discharge Summary ---
Providers - Providers Date of Admission: 05/10/21 20:26 Date of discharge: 05/12/21 Attending physician: RISA CASTILLO Primary care physician: RISA CASTILLO Hospitalization Reason for admission: other ( pre-eclampsia ) Condition at discharge: Good Disposition: 01 HOME / SELF CARE / HOMELESS Plan - Discharge Medications Prescriptions: Butalb/Acetamin/Caff 50-325-40 [Fioricet 50-325-40] 1 tab PO Q6HR PRN #20 tab PRN Reason: Headache Labetalol HCl [Labetalol 300mg TAB] 300 mg PO BID 30 Days #60 tab NIFEdipine XL [Procardia Xl] 30 mg PO Q12HR #60 tab - Provider Discharge Summary Activity: routine, no sex for 6 weeks, no heavy lifting 4 weeks, no strenuous exercise Diet: routine Instructions: routine Additional instructions: [] Smoking cessation referral if applicable(refer to patient education folder for contact #) [] Refer to [facility] Booklet Call your doctor immediately for: * Fever > 100.5 * Heavy vaginal bleeding ( >1 pad per hour) * Severe persistent headache * Shortness of breath * Reddened, hot, painful area to leg or breast * Drainage or odor from incision. * Keep incision clean and dry at all times and follow doctor's instructions regarding bathing/showering Return to clinic in 2 days for a BP check - Follow up plan Follow up: REINA CLARKE, L[employer] GRINDER [Advanced Practice Nurse] - 48 Hours
[2021-05-12 09:33] VITALS: BP 127/72
[2021-05-12] MEDS ORDERED: NIFEdipine XL 30 MG TAB PO SCH (10:00)
== END 2021-05-12 09:50 | disposition home or self-care (01) | DRG 776 ==
LOC: TRG 18:09 → APU 18:12 → TRG 18:15 → APU 20:26 → LD 21:03 → OB 05-12 01:42
PROVIDERS: ADMIT Obstetrics & Gynecology; ATTEND Obstetrics & Gynecology
DX: O11.5 Pre-existing hypertension with pre-eclampsia, complicating the puerperium (principal); O99.215 Obesity complicating the puerperium; E66.01 Morbid (severe) obesity due to excess calories
CPT/HCPCS: 36415; 81001; 82565; 83615; 83735; 84450; 84460; 84550; 85027; 87086; G0378; J3490; J3475; J7120